=== PATIENT | male | born 1990 | race Caucasian/White ===

== ENCOUNTER 2023-05-03 09:00 | Emergency (ER) | payer BC, OTHER ==
[2023-05-03 09:19] VITALS: BP 129/79; PULSE 71; RESP 18; TEMP 98; O2SAT 98
[2023-05-03] MEDS ORDERED: Zofran 4 MG/2 ML VIAL IV ONE (09:19)
[2023-05-03] MEDS ORDERED: Sodium Chloride 0.9% 1000 ML 1,000 ML IV STA (09:19)
[2023-05-03] MEDS ORDERED: TORAdol 30 mg Injection IV ONE (09:19)
[2023-05-03] MEDS ORDERED: Zofran 4 MG/2 ML VIAL ONE (09:28)
[2023-05-03] MEDS ORDERED: Sodium Chloride 0.9% 1000 ML 1,000 ML ONE (09:28)
[2023-05-03] MEDS ORDERED: TORAdol 30 mg Injection ONE (09:28)
[2023-05-03 09:37] LABS: Absolute Neutrophil Ct (ANC) 5.55 x10^3/uL (1.4-6.9); BASOPHIL % 0.9 % (0.0-0.4); Basophil (Absolute #) 0.09 x10^3/uL (0-0.4); Eosinophil % 1.5 % (0.00-5.0); Eosinophil (Absolute #) 0.15 x10^3/uL (0-0.5); Hemoglobin 13.5 g/dL (12.5-18.0); IMMATURE GRAN # 0.03 x10^3u/L (0.00-0.03); IMMATURE GRAN % 0.3 % (0.00-0.4); Lymphocyte (Absolute #) 3.06 x10^3/uL (1.0-4.6); Lymphocytes % 31.3 % (24.0-44.0); Mean Cell Volume 86.1 fL (78-100); Mean Corpuscular Hemoglobin 28.4 pg (26-32); Mean Corpuscular Hgb Concent. 32.9 g/dL (32-36); Mean Platelet Volume 8.4 fL (7.5-11.0); Monocytes % 9.2 % (0.0-12.0); Neutrophil % 56.8 % (36.0-66.0); Platelet Count 392 x10^3/uL (150-450); Red Blood Count 4.76 x10^6/uL (4.1-5.6); Red Cell Distribution Width 12.7 % (11.5-14.0); White Blood Count 9.8 x10^3/uL (4.0-10.5)
--- NOTE | 2023-05-03 09:38 | ERPHSYRPT ---
- History of Present Illness Time Seen by Provider: 05/03/23 09:36 Historian: patient Exam Limitations: no limitations Patient Subjective Stated Complaint: pt reports right flank/groin pain that radiates to his lower back, pt reports nausea and vomiting, pt reports blood in the urine, pt reports history of kidney stone many years ago Triage Nursing Assessment: pt is aox3, appears in pain, pupils perrl, afebrile, resps easy and non labored, radial pulses strong and equal, cap refill < 3 seconds, pt is diaphoretic and pale. pt with tenderness to the RLQ. Physician History: pt reports right flank/groin pain that radiates to his lower back, pt reports nausea and vomiting, pt reports blood in the urine, pt reports history of kidney stone many years ago Timing/Duration: today Activities at Onset: none Abdominal Pain Onset Location: flank (right flank) Pain Radiation: groin Severity of Pain-Max: moderate Severity of Pain-Current: moderate Modifying Factors: Improves With: nothing Associated Symptoms: other (blood in urine), No fever/chills Previous symptoms: same symptoms as today Allergies/Adverse Reactions: No Known Drug Allergies Allergy (Verified 05/03/23 09:15) Hx Tetanus, Diphtheria Vaccination/Date Given: Yes Hx Influenza Vaccination/Date Given: No Hx Pneumococcal Vaccination/Date Given: No Immunizations Up to Date: Yes Travel Risk - International Travel Have you traveled outside of the country in past 3 weeks: No - Coronavirus Screening Are you exhibiting any of the following symptoms?: No - Vaccine Status Have you recieved a Covid-19 vaccination: No - Review of Systems Constitutional: No Fever, No Chills Eyes: No Symptoms Ears, Nose, & Throat: No Symptoms Respiratory: No Cough, No Dyspnea Cardiac: No Chest Pain, No Edema, No Syncope Abdominal/Gastrointestinal: Abdominal Pain, No Nausea, No Vomiting, No Diarrhea Genitourinary Symptoms: Hematuria, Flank Pain, No Dysuria Musculoskeletal: No Back Pain, No Neck Pain Skin: No Rash Neurological: No Dizziness, No Focal Weakness, No Sensory Changes Psychological: No Symptoms Endocrine: No Symptoms All Other Systems: Reviewed and Negative - Past Medical History Pertinent Past Medical History: Yes Other Medical History: hx of kidney stone - Past Surgical History Past Surgical History: Yes Musculoskeletal: Other Other Surgical History: patient with skull surgery secondary to fractured skull distant past. hip surgery at 8 yrs old - Social History Smoking Status: Current every day smoker Exposure to second hand smoke: No Drug Use: none Patient Lives Alone: No - Nursing Vital Signs Nursing Vital Signs: Initial Vital Signs Temperature 98 F 05/03/23 09:04 Pulse Rate 71 05/03/23 09:04 Respiratory Rate 18 05/03/23 09:04 Blood Pressure 129/79 05/03/23 09:04 O2 Sat by Pulse Oximetry 98 05/03/23 09:04 Pain Scale Pain Intensity 8 - Physical Exam General Appearance: no apparent distress, alert Eye Exam: PERRL/EOMI, eyes nml inspection Ears, Nose, Throat Exam: normal ENT inspection, pharynx normal, moist mucous membranes Neck Exam: normal inspection, non-tender, supple, full range of motion Respiratory Exam: normal breath sounds, lungs clear, No respiratory distress Cardiovascular Exam: regular rate/rhythm, normal heart sounds Gastrointestinal/Abdomen Exam: soft, tenderness (right flank), No mass Back Exam: normal inspection, normal range of motion, No CVA tenderness, No ve rtebral tenderness Extremity Exam: normal inspection, normal range of motion, pelvis stable Neurologic Exam: alert, oriented x 3, cooperative, normal mood/affect, nml cerebellar function, sensation nml, No motor deficits Skin Exam: normal color, warm, dry SpO2: 98 - Course Nursing assessment & vital signs reviewed: Yes - CT Exams Abdomen/Pelvis CT Interpretation: Tele-radiologist Report Ordered Tests: Active Orders 24 hr Category Date Time Status ABDOMEN AND PELVIS W/0 CONTRAS [CT] Stat Exams 05/03/23 09:44 Completed AMYLASE Stat Lab 05/03/23 09:25 Completed CBC W DIFF Stat Lab 05/03/23 09:25 Completed CMP Stat Lab 05/03/23 09:25 Completed CULTURE,URINE Stat Lab 05/03/23 09:25 Received LIPASE Stat Lab 05/03/23 09:25 Completed UA W/RFX UR CULTURE Stat Lab 05/03/23 09:25 Completed Medication Summary Discontinued Medications Generic Name Dose Route Start Last Admin Trade Name Freq PRN Reason Stop Dose Admin Sodium Chloride 1,000 mls @ 999 mls/hr 05/03/23 09:19 05/03/23 10:47 Sodium Chloride 0.9% 1000 Ml IV 05/03/23 10:19 999 mls/hr .Q1H1M STA Infusion Sodium Chloride Confirm 05/03/23 09:28 Sodium Chloride 0.9% 1000 Ml Administered 05/03/23 09:29 Dose 1,000 mls @ ud .ROUTE .STK-MED ONE Ketorolac Tromethamine 30 mg 05/03/23 09:19 05/03/23 09:30 Ketorolac Tromethamine 30 Mg/Ml Inj IV 05/03/23 09:20 30 mg STAT ONE Administration Ketorolac Tromethamine Confirm 05/03/23 09:28 Ketorolac Tromethamine 30 Mg/Ml Inj Administered 05/03/23 09:29 Dose 30 mg .ROUTE .STK-MED ONE Ondansetron HCl 4 mg 05/03/23 09:19 05/03/23 09:30 Ondansetron Hcl 4 Mg/2 Ml Vial IV 05/03/23 09:20 4 mg STAT ONE Administration Ondansetron HCl Confirm 05/03/23 09:28 Ondansetron Hcl 4 Mg/2 Ml Vial Administered 05/03/23 09:29 Dose 4 mg .ROUTE .STK-MED ONE Orphenadrine Citrate 60 mg 05/03/23 10:40 05/03/23 10:46 Orphenadrine Citrate 60 Mg/2 Ml Vial IM 05/03/23 10:41 Not Given STAT ONE Orphenadrine Citrate Confirm 05/03/23 10:42 Orphenadrine Citrate 60 Mg/2 Ml Vial Administered 05/03/23 10:43 Dose 60 mg .ROUTE .STK-MED ONE Tamsulosin HCl 0.4 mg 05/03/23 10:40 05/03/23 10:46 Tamsulosin Hcl 0.4 Mg Cap PO 05/03/23 10:41 Not Given DAILY STA Tamsulosin HCl Confirm 05/03/23 10:42 Tamsulosin Hcl 0.4 Mg Cap Administered 05/03/23 10:43 Dose 0.4 mg .ROUTE .STK-MED ONE Lab/Rad Data: Laboratory Result Diagrams 05/03/23 09:25 05/03/23 09:25 Laboratory Results 05/03/23 05/03/23 05/03/23 Range/Units 09:25 09:25 09:25 WBC 9.8 (4.0-10.5) x10^3/uL RBC 4.76 (4.1-5.6) x10^6/uL Hgb 13.5 (12.5-18.0) g/dL Hct 41.0 L (42-50) % MCV 86.1 (78-100) fL MCH 28.4 (26-32) pg MCHC 32.9 (32-36) g/dL RDW 12.7 (11.5-14.0) % Plt Count 392 (150-450) x10^3/uL MPV 8.4 (7.5-11.0) fL Gran % 56.8 (36.0-66.0) % Immature Gran % (Auto) 0.3 (0.00-0.4) % Nucleat RBC Rel Count 0.0 (0.00-0.1) % Eos # (Auto) 0.15 (0-0.5) x10^3/uL Immature Gran # (Auto) 0.03 (0.00-0.03) x10^3u/L Absolute Lymphs (auto) 3.06 (1.0-4.6) x10^3/uL Absolute Monos (auto) 0.90 (0.0-1.3) x10^3/uL Absolute Nucleated RBC 0.00 (0.00-0.01) x10^3u/L Lymphocytes % 31.3 (24.0-44.0) % Monocytes % 9.2 (0.0-12.0) % Eosinophils % 1.5 (0.00-5.0) % Basophils % 0.9 (0.0-0.4) % Absolute Granulocytes 5.55 (1.4-6.9) x10^3/uL Basophils # 0.09 (0-0.4) x10^3/uL Sodium 139 (137-145) mmol/L Potassium 3.4 L (3.5-5.1) mmol/L Chloride 103 (98-107) mmol/L Carbon Dioxide 28 (22-30) mmol/L Anion Gap 11.8 (5-15) MEQ/L BUN 13 (9-20) mg/dL Creatinine 1.03 (0.66-1.25) mg/dL Estimated GFR > 60.0 ML/MIN Glucose 122 H (74-106) mg/dL Calcium 9.0 (8.4-10.2) mg/dL Total Bilirubin 0.30 (0.2-1.3) mg/dL AST 23 (17-59) U/L ALT 21 (0-50) U/L Alkaline Phosphatase 62 (38-126) U/L Serum Total Protein 7.1 (6.3-8.2) g/dL Albumin 4.1 (3.5-5.0) g/dL Amylase 48 (30-110) U/L Lipase 44 (23-300) U/L Urine Color Red A (Yellow) Urine Appearance Turbid A (Clear) Urine pH 8.0 (4.6-8.0) Ur Specific [place] 1.020 (1.005-1.030) Urine Protein 30 (Negative) Urine Glucose (UA) Negative (Negative) mg/dL Urine Ketones Negative (Negative) Urine Blood Large A (Negative) Urine Nitrite Negative (Negative) Urine Bilirubin Small A (Negative) Urine Urobilinogen 1.0 A (0.2) mg/dL Ur Leukocyte Esterase Small A (Negative) U Hyaline Cast (Auto) NONE SEEN (0-2) /LPF Urine Microscopic RBC >100 A (0-5) /HPF Urine Microscopic WBC 11-20 A (0-5) /HPF Ur Epithelial Cells None Seen (None Seen) /HPF Urine Bacteria None Seen (None Seen) /HPF Urine Culture Reflexed YES (NO) CT/ABDOMEN AND PELVIS W/0 CONTRAS CLINICAL HISTORY:right flank pain COMPARISON:06/03/2016. TECHNIQUE:CT scan of the abdomen and pelvis was performed without IV contrast. Coronal and sagittal reconstructive images were also obtained. FINDINGS: 3.8 mm obstructing calculus was seen in the distal right ureter with HU of approximately 500 at S2-S3 level causing mild proximal hydroureter and mild hydronephrosis. Mild periureteric fat stranding is noted. The liver is normal in size. No focal or diffuse parenchymal abnormality. The pancreas and adrenal glands are unremarkable. A few tiny calcific specks are seen in the spleen. The gallbladder is normal. No pericholecystic collection or radio-dense calculi in the gallbladder. Visualized bowel loops appear unremarkable. There is no evidence of significant enlargement of the mesenteric or retroperitoneal lymph nodes. The urinary bladder is unremarkable. No evidence of pelvic lymphadenopathy. Visualized lung bases appear unremarkable except for a 6 mm diffusely calcified nodule in the right lower lobe. Few Schmorl nodes are seen at lower thoracic vertebrae. IMPRESSION: 1. Mild right hydroureteronephrosis secondary to 3.8 mm calculus in the distal right ureter causing mild right obstructive uropathy. 2. In comparison with the prior study dated 06/03/2016, redemonstration of mild right hydroureteronephrosis, however, there is an interval increase in the size of the calculus and position remains almost unchanged. 3. No other significant abnormality was seen in CT scans abdomen and pelvis without contrast. - Progress Progress: improved Progress Note: 05/03/23 10:48 Patient pain is completely gone. Is feeling better. He is advised about the C AT scan report that he probably has a 3.8 mm stone which he almost passed into the bladder. He is advised to strain his urine for the stone and collect the stone if he can then bring it to the lab for further evaluation. He is also advised to follow-up with his primary care physician. Counseled pt/family regarding: lab results, diagnosis, need for follow-up, rad results Medical Desision Making - Diagnostic Testing Diagnostic test were ordered, analyzed, and reviewed by me: Yes Radiological Interpretation: Teleradiologist Report - Risk of complications Low Risk: Low risk of morbidity from additional dx testing or treatment - Departure Departure Disposition: Home Clinical Impression: Right flank pain, Right distal ureteral calculus Condition: Stable Critical Care Time: No Referrals: DOCTOR,NO FAMILY [Primary Care Provider] - Follow up with PCP 5 days Instructions: Kidney Stones (DC), Flank Pain Additional Instructions: Strain your urine for stone. If you can collect the stool and then bring it to the hospital in the lab for further evaluation. Discharge/Care Plan LUCILA KHOURY was seen on 05/03/23 in the Emergency Room. The patient was counseled regarding Diagnosis,Lab results, Imaging studies, need for follow up and when to return to the Emergency Room. Prescriptions given: Discharge Note I have spoken with the patient and/or caregivers. I have explained the patient's condition, diagnosis and treatment plan based on the information available to me at this time. I have answered the patient's and/or caregiver's questions and addressed any concerns. The patient and/or caregivers have as good understanding of the patient's diagnosis, condition and treatment plan as can be expected at this point. The vital signs have been stable. The patient's condition is stable and appropriate for discharge from the emergency department. The patient will pursue further outpatient evaluation with the primary care physician or other designated or consulting physician as outlined in the discharge instructions. The patient and/or caregivers are agreeable to this plan of care and follow-up instructions have been explained in detail. The patient and/or caregivers have received these instruction. The patient/and or caregivers are aware that any significant change in condition or worsening of symptoms should prompt an immediate return to this or the closest emergency department or call 911. LUCILA KHOURY was seen on 05/03/23 n the Emergency Room. At that time you were treated for an emergent condition, during your visit Laboratory, Radiology and/or other procedures may have been ordered. It is very important that you follow-up with your Primary Care Physician NO FAMILY DOCTOR within the next 24- 48 hours to review your Emergency Room visit and the final results of testing that was ordered. Some test results such as Urine Cultures, Blood Cultures, and other cultures if ordered will not be finalized for 24-48 hours. If you do not have a Primary Care Provider please call the medical records department at [phone] ext [phone] to obtain a copy of your results or you may sign into our patient portal to obtain these results by visiting us @ [email or web address] and completing the following steps: 1. Click on the Patient Portal link 2. Click the Patient Self Enrollment Link to complete the enrollment form and entering your 3. Once the enrollment form is completed you will receive an email with a temporary ID and password at the email address you provided. 4. Next choose a user name and password. Your user name must be at least 4 characters long and your password must be at least 4 characters long. 5. Choose a security question from the list and provide your answer to the question. If you already have signed into the Health Portal you may access your Health Care Information 06/04 by the following steps: 1. Login to our website @ [email or web address] 2. Enter your original user name and password. FAQS The [facility] Health Portal is an online tool that contains your Lab Results, Radiology Reports, Visit History, Discharge Instructions and Health Summary Lab and Radiology Results will not be available for 72 hours on the portal. The Portal is a secure site, passwords are encryted and URLs are re-written so they cannot be copied and pasted. You and authorized family members are the only ones who can access your Portal. Also there is a timeout feature that protects your information if you leave the Portal page open. If you have technical difficulty please use the Contact Us link on the page this will allow you to submit any questions you have regarding the Portal or you may contact the Medical Record Department at [phone] ext [phone]. Prescriptions: Ciprofloxacin [Cipro 500 MG] 500 mg PO BIDAC #15 tablet
[2023-05-03 09:39] LABS: Appearance Turbid (Clear); Bacteria None Seen /HPF (None Seen); Bilirubin Small (Negative); Blood Large (Negative); Epithelial Cells None Seen /HPF (None Seen); Glucose, Urine Negative (Negative); Hyaline Casts NONE SEEN /LPF (0-2); Ketones Negative (Negative); Leukocyte Esterase Small (Negative); Nitrite Negative (Negative); Protein,Urine Dip 30 (Negative); RBC >100 /HPF (0-5)
[2023-05-03 09:47] LABS: ADD URINE CULTURE? YES (NO)
[2023-05-03 09:54] LABS: ALBUMIN 4.1 g/dL (3.5-5.0); ALKALINE PHOSPHATASE 62 U/L (38-126); AMYLASE 48 U/L (30-110); ANION GAP 11.8 MEQ/L (5-15); BLOOD UREA NITROGEN 13 mg/dL (9-20); CHLORIDE 103 mmol/L (98-107); Carbon Dioxide 28 mmol/L (22-30); Creatinine 1 1.03 mg/dL (0.66-1.25); EST GLOMERULAR FILTRATION RATE > 60.0 ML/MIN; Glucose 122 mg/dL (74-106); LIPASE 44 U/L (23-300); Potassium 3.4 mmol/L (3.5-5.1); SGOT/AST 23 U/L (17-59); SGPT/ALT 21 U/L (0-50); SODIUM 139 mmol/L (137-145); Total Protein 7.1 g/dL (6.3-8.2)
[2023-05-03] MEDS ORDERED: Norflex 60 MG/2 ML ONE (10:42)
[2023-05-03] MEDS ORDERED: Flomax 0.4 MG ONE (10:42)
[2023-05-03] MEDS: Flomax 0.4 MG PO STA ×2 (10:43→10:46)
[2023-05-03] MEDS: Norflex 60 MG/2 ML IM ONE ×2 (10:43→10:46)
--- NOTE | 2023-05-03 10:46 | XRAY ---
CLINICAL HISTORY:right flank pain COMPARISON:06/03/2016. TECHNIQUE:CT scan of the abdomen and pelvis was performed without IV contrast. Coronal and sagittal reconstructive images were also obtained. FINDINGS: 3.8 mm obstructing calculus was seen in the distal right ureter with HU of approximately 500 at S2-S3 level causing mild proximal hydroureter and mild hydronephrosis. Mild periureteric fat stranding is noted. The liver is normal in size. No focal or diffuse parenchymal abnormality. The pancreas and adrenal glands are unremarkable. A few tiny calcific specks are seen in the spleen. The gallbladder is normal. No pericholecystic collection or radio-dense calculi in the gallbladder. Visualized bowel loops appear unremarkable. There is no evidence of significant enlargement of the mesenteric or retroperitoneal lymph nodes. The urinary bladder is unremarkable. No evidence of pelvic lymphadenopathy. Visualized lung bases appear unremarkable except for a 6 mm diffusely calcified nodule in the right lower lobe. Few Schmorl nodes are seen at lower thoracic vertebrae. IMPRESSION: 1. Mild right hydroureteronephrosis secondary to 3.8 mm calculus in the distal right ureter causing mild right obstructive uropathy. 2. In comparison with the prior study dated 06/03/2016, redemonstration of mild right hydroureteronephrosis, however, there is an interval increase in the size of the calculus and position remains almost unchanged. 3. No other significant abnormality was seen in CT scans abdomen and pelvis without contrast. The [facility] was called at [phone] at 09:33 AM CLERICAL SPECIALIST, 05/03/2023, and significant medical findings were verbally communicated to Sanford Husain. Electronically Signed by: Michael Varela MD. (05/03/2023 09:44:56 CLERICAL SPECIALIST)
== END 2023-05-03 11:13 | disposition home or self-care (01) ==
LOC: ED 09:00
DX: N13.2 Hydronephrosis with renal and ureteral calculous obstruction (principal); Z87.442 Personal history of urinary calculi; R10.9 Unspecified abdominal pain; R11.2 Nausea with vomiting, unspecified; R31.9 Hematuria, unspecified; Z28.310 Unvaccinated for COVID-19; Z72.0 Tobacco use
CPT/HCPCS: 36415; 74176; 80053; 81001; 82150; 83690; 85025; 87086; 96374; 96375; 99284; J1885; J2360; J2405; A9270-GY

== ENCOUNTER 2023-11-06 05:34 | Emergency (ER) | payer BC, OTHER ==
[2023-11-06 05:49] VITALS: BP 130/88; RESP 16; TEMP 98.4
--- NOTE | 2023-11-06 06:36 | ERPHSYRPT ---
- History of Present Illness Time Seen by Provider: 11/06/23 06:15 Source: patient Exam Limitations: no limitations Patient Subjective Stated Complaint: pt states he has a tooth infection on the lt upper jaw and is worried about it spreading Triage Nursing Assessment: pt alert and oriented, answers questions without diff. pt ambulates into room with steady gait noted, respirations nonlabored, skin warm and dry. broken tooth noted to upper lt jaw. Physician History: This is a 32-year-old white male patient who presents with pain in left upper posterior molar. He has chronic intermittent dental caries. Patient was seen by a dentist recently and placed on amoxicillin. He is on day 4 of amoxicillin. He is concerned that the infection is "spreading" because now he has pain in his left cheek and into his left side head. Timing/Duration: gradual onset Severity: mild (To moderate) ENT Location: dental Prearrival Treatment: over the counter meds, prescription meds (Amoxicillin day for) Modifying Factors: Improves With: activity Associated Symptoms: jaw pain (Left side), tooth pain, No difficulty swallowing, No voice change Allergies/Adverse Reactions: No Known Drug Allergies Allergy (Verified 11/06/23 05:50) Home Medications: No Reportable Medications [No Reported Medications] 11/06/23 [History] Hx Tetanus, Diphtheria Vaccination/Date Given: No Hx Influenza Vaccination/Date Given: No Hx Pneumococcal Vaccination/Date Given: No Immunizations Up to Date: No Travel Risk - International Travel Have you traveled outside of the country in past 3 weeks: No - Coronavirus Screening Are you exhibiting any of the following symptoms?: No Close contact with a COVID-19 positive Pt in past 14-21 Days: No - Vaccine Status Have you recieved a Covid-19 vaccination: No - Review of Systems Constitutional: No Symptoms Eyes: No Symptoms Ears, Nose, & Throat: Other (Left upper posterior molar dental pain) Respiratory: No Symptoms Cardiac: No Symptoms Abdominal/Gastrointestinal: No Symptoms Genitourinary Symptoms: No Symptoms Musculoskeletal: No Symptoms Skin: No Symptoms Neurological: No Symptoms Psychological: No Symptoms Endocrine: No Symptoms Hematologic/Lymphatic: No Symptoms Immunological/Allergic: No Symptoms All Other Systems: Reviewed and Negative - Past Medical History Pertinent Past Medical History: Yes Other Medical History: hx of kidney stone - Past Surgical History Past Surgical History: Yes Musculoskeletal: Other Other Surgical History: patient with skull surgery secondary to fractured skull distant past. hip surgery at 8 yrs old - Social History Smoking Status: Current every day smoker How long have you smoked: 16 yrs Exposure to second hand smoke: No Drug Use: none Patient Lives Alone: No - Nursing Vital Signs Nursing Vital Signs: Initial Vital Signs Temperature 98.4 F 11/06/23 05:40 Pulse Rate 96 H 11/06/23 05:40 Respiratory Rate 16 11/06/23 05:40 Blood Pressure 130/88 11/06/23 05:40 O2 Sat by Pulse Oximetry 98 11/06/23 05:40 Pain Scale Pain Intensity 4 - Physical Exam General Appearance: no apparent distress, alert, anxiety Eye Exam: bilateral eye: normal inspection, PERRL, EOMI Ear Exam: bilateral ear: auricle normal Nasal Exam: normal inspection Throat Exam: pharynx normal, dental tenderness (Generalized dental caries with fracture left upper posterior molar), moist mucus membranes, No excessive drooling, No maxillary swelling, No voice changes Neck Exam: normal inspection, non-tender, supple, full range of motion, trachea midline Cardiovascular/Respiratory Exam: chest non-tender, no respiratory distress Abdominal Exam: non-tender Neurologic Exam: alert, oriented x 3, cooperative, treatment technician II-XII nml as tested, normal mood/affect, nml cerebellar function, nml station & gait, sensation nml Skin Exam: normal color, warm, dry SpO2 Interpretation: normal SpO2: 98 O2 Delivery: Room Air - Course Nursing assessment & vital signs reviewed: Yes Ordered Tests: Medication Summary Generic Name Dose Route Start Last Admin Trade Name Sahilq PRN Reason Stop Dose Admin Ceftriaxone Sodium 1,000 mg 11/06/23 06:36 Ceftriaxone Sodium 1000 Mg Inj Vial IM 11/06/23 06:37 STAT ONE Oxycodone/Acetaminophen 1 tab 11/06/23 06:36 Oxycodone / Apap 10/325 Mg 1 Tablet PO 11/06/23 06:37 STAT STA Oxycodone/Acetaminophen 2 tab 11/06/23 06:36 Oxycodone Hcl/Apap 5 Mg/325 Mg Tablet PO 11/06/23 06:37 SENT HOME W/ PATIENT STA - Progress Progress Note: 11/06/23 06:43 This patient's medical issue is 1 of low complexity the level complexity in the workup performed is based on review of the patient's past medical history, review of the patient's medication list, review of the patient's drug allergy list, history present illness and physical findings on examination. The workup in this patient does not require laboratory radiographic studies. Will provide the patient with an intramuscular injection of Rocephin and provide him with Percocet 10/325 here in the emergency department and 2 take-home Percocet 5/325 tablets. Patient will continue his amoxicillin and follow-up with a dentist for definitive care. Counseled pt/family regarding: lab results, diagnosis, need for follow-up Medical Desision Making - Independent Historian Additional History obtained from: Mother - Diagnostic Testing Diagnostic test were ordered, analyzed, and reviewed by me: No - Risk of complications Minimal Risk: Minimal risk of morbidity - Departure Departure Disposition: Home Clinical Impression: Dental caries, Pain due to dental caries Condition: Stable Critical Care Time: No Referrals: DOCTOR,NO FAMILY [Primary Care Provider] - Follow up/PCP as directed Additional Instructions: Drink plenty of fluids. Continue your amoxicillin as prescribed. Add ibuprofen 600 mg orally 3 times a day with food for the next 5 days for pain control. After you complete your Percocet, may also add Tylenol 650 mg orally 4 times a day for the next 5 days. Call your dentist to make arrangements for your follow-up appointment in definitive care.
[2023-11-06] MEDS ORDERED: Rocephin 1000 MG INJ ONE (06:55)
[2023-11-06] MEDS ORDERED: PERCOCET TABLET 5/325MG ONE (06:55)
[2023-11-06] MEDS ORDERED: OXYCODONE-ACETAMINOPHEN 10-325 ONE (06:55)
[2023-11-06] MEDS ORDERED: XYLOCAINE 1% HCL 20 ML MDV ONE (06:57)
[2023-11-06] MEDS: PERCOCET TABLET 5/325MG PO STA (06:59)
[2023-11-06] MEDS: Rocephin 1000 MG INJ IM ONE (07:00)
[2023-11-06] MEDS: OXYCODONE-ACETAMINOPHEN 10-325 PO STA (07:00)
[2023-11-06 07:20] VITALS: PULSE 76; O2SAT 99
== END 2023-11-06 07:20 | disposition home or self-care (01) ==
LOC: ED 05:34
DX: K02.9 Dental caries, unspecified (principal); K08.89 Other specified disorders of teeth and supporting structures; Z28.310 Unvaccinated for COVID-19; Z72.0 Tobacco use
CPT/HCPCS: 96372; 99283; J0696; A9270-GY